=== PATIENT | male | born 1965 | race Caucasian/White ===

== ENCOUNTER 2017-11-13 09:50 | Outpatient (CLI) | payer OTHER ==
--- NOTE | 2017-11-13 13:28 | MRI ---
MRI LEFT KNEE WITHOUT CONTRAST: Date: 11/13/17 HISTORY: Knee pain. COMPARISON: None. FINDINGS: Medial Meniscus: There is a full thickness radial tear of the posterior horn medial meniscus occurring 8 mm from the f ootprint with extensive degenerative signal within the posterior horn, as well as of the body and the root attachment. Small subcortical cyst at the attachment of the posterior root. Lateral Meniscus: Intact. ACL and PCL: Intact. Extensor Mechanism: Quadriceps tendon, patella, and patellar tendon are all intact. Cartilage: Patellofemoral compartment: There are approximately 50% thickness cartilage fissures of the medial p atellar facet and patellar apex. Same is true for the medial trochlea and trochlear groove. Medial compartment: No full thickness cartilage defect. There is less than 50% cartilage spurring of the medial compartment. Lateral compartment: No focal defect. Muscles: Muscle signal and bulk are normal. Soft Tissues: Moderate joint effusion. IMPRESSION: 1. Full thickness radial tear of posterior horn/root attachment medial meniscus 9 mm from footprint. There is associated complex tearing and degeneration of the posterior horn extending to the medial m eniscal body. This may be a chronic issue as there is a subcortical cyst of the posterior root attach ment. 2. Low grade edema of the femoral insertion of the medial meniscal femoral ligament, may be sequelae of fluid tracking through the complex tear. Contusion is not felt likely. 3. Multifocal Grade II chondromalacia of the patellofemoral and medial compartments with medial comp artment having approximately 50% cartilage fraying throughout the articular surfaces. POS: C
== END 2017-11-13 09:51 | disposition home or self-care (01) ==
LOC: SCSMRI 09:50
PROVIDERS: ATTEND Orthopaedic Surgery
DX: M23.92 Unspecified internal derangement of left knee (principal); M23.222 Derangement of posterior horn of medial meniscus due to old tear or injury, left knee; R60.0 Localized edema; M22.42 Chondromalacia patellae, left knee

== ENCOUNTER 2018-04-01 11:08 | Day surgery (SDC) | payer OTHER ==
[2018-03-29 14:59] VITALS: BMI 29.6
[2018-04-01] MEDS ORDERED: CEFAZOLIN 2 GM/50 ML BAG ONE ×2 (11:54→11:59)
[2018-04-01] MEDS ORDERED: Bupivacaine PF 0.5% 30 ML VIAL ONE (12:45)
[2018-04-01] MEDS ORDERED: Midazolam HCl 2 mg/2 ml Vial ONE (12:57)
[2018-04-01] MEDS ORDERED: Fentanyl 100 MCG/2 ML VIAL ONE (13:07)
[2018-04-01] MEDS ORDERED: HYDROcodone/Acetaminophen 5/325 mg Tablet ONE (15:37)
--- NOTE | 2018-04-01 21:57 | OP ---
DATE OF PROCEDURE: 04/01/2018 PREOPERATIVE DIAGNOSIS: Left knee medial meniscus tear. POSTOPERATIVE DIAGNOSES: 1. Left knee medial meniscus tear. 2. 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 PROCEDURE PERFORMED: Left knee arthroscopy with partial medial meniscectomy. ANESTHESIA: General. TOURNIQUET TIME: 19 minutes of 300 mmHg. SPECIMEN: None. DRAINS: None. IMPLANTS: None. INDICATIONS FOR PROCEDURE: Mr. Sun is a pleasant 53-year-old gentleman, who has a history of left medial knee pain. Workup has included plain x-ray as well as MRI which has revealed evidence of a posterior horn medial meniscus tear as well as some articular surface thinning and irregularity especially at the medial compartment. The patient has modified activities, has used knee braces, and we have tried injections; however, he continues to have pain that is interfering with activities of normal daily living. As such, we are now to proceed with arthroscopy and partial meniscectomy. Informed consent has been obtained. I believe all questions answered. DESCRIPTION OF PROCEDURE: The patient was brought to the operating room and a time-out performed followed by induction of general anesthesia. The patient was then placed supine on the OR table and exam under anesthesia was preformed. This showed the knee with range of from full extension to 135 degrees flexion and no laxity to Harrison drawer or varus valgus stress testing. A sterile prep and drape was performed of this left lower extremity. The knee was then exsanguinated with Esmarch bandage. Tourniquet inflated to 300 mmHg. A standard anterior lateral arthroscopic portal was then created and diagnostic arthroscopy was performed. Arthroscopic findings were that of a suprapatellar pouch with just some small chondral loose bodies, otherwise minimal synovitis. The articular surface of the patella showed some mild softening, but no significant loss of articular cartilage surface. The trochlear groove was found to have grade 2 chondromalacia with some significant fissuring although no loose articular cartilage flaps were encountered. Both medial and lateral gutters were free of loose bodies. The camera was brought in the medial compartment and anterior medial portal was created. The medial compartment was inspected. He was found to have a complex tear of the posterior horn medial meniscus as well as some grade 3 changes of the posterior medial tibial plateau articular surface and some grade 2 changes of the medial femoral condyle. The camera was then brought to the midline showing an intact ACL and PCL. The knee was then brought into a [id number] position showing some grade 2 chondral changes of the lateral tibial plateau, but a healthy-appearing lateral meniscus and a very healthy-appearing lateral femoral condyle. Next, attention was placed back at the medial compartment. With a significant valgus stress applied to the knee, the posterior horn could be visualized and using a combination of shaver and duckbill cutter, a partial posterior horn meniscectomy was performed bringing it back to a stable posterior rim. All the small leaflets were then vacuumed from the knee using the shaver and the shaver was used to further smooth the transition region from the tear of the meniscus to the more normal meniscal tissue. Once done, a probe was reintroduced and no further loose meniscal fragments were encountered. As such, the instruments were removed from the knee. The two portals were closed with 4-0 Nylon horizontal mattress fashion and then a Xeroform gauze, Webril, and Dmitriy wrap dressing was applied to the knee. Tourniquet was let down after completion of dressing and the patient was transferred to recovery room in stable condition. There were no complications. The patient tolerated the procedure well. Job ID: [id number]
== END 2018-04-01 15:53 | disposition home or self-care (01) ==
LOC: SDC 11:08
PROVIDERS: ATTEND Orthopaedic Surgery
PROC: 0SBD4ZZ Excision of Left Knee Joint, Percutaneous Endoscopic Approach (ICD-10-PCS; principal; 2018-04-01)
DX: M23.222 Derangement of posterior horn of medial meniscus due to old tear or injury, left knee (principal); M94.262 Chondromalacia, left knee
CPT/HCPCS: J2250; J3010; S0020